=== PATIENT | female | born 1975 | race African-American/Black ===

== ENCOUNTER → 2024-03-04 19:46 | Outpatient (REF) | payer OTHER, SELFPAY | LOC: WDC 19:46 | PROVIDERS: ATTENDING PHYSICIAN Nurse Practitioner Family | DX: Z12.31 Encounter for screening mammogram for malignant neoplasm of breast (principal) | CPT/HCPCS: 77063; 77067 ==

== ENCOUNTER → 2024-03-14 09:35 | Outpatient (REF) | payer OTHER, SELFPAY | LOC: WDC 09:35 | PROVIDERS: ATTENDING PHYSICIAN Nurse Practitioner Family | DX: R92.8 Other abnormal and inconclusive findings on diagnostic imaging of breast (principal) | CPT/HCPCS: 76642 ==

== ENCOUNTER → 2024-08-06 09:14 | Outpatient (REF) | payer OTHER, SELFPAY | LOC: WDC 09:14 | PROVIDERS: ATTENDING PHYSICIAN Nurse Practitioner Family | DX: R92.8 Other abnormal and inconclusive findings on diagnostic imaging of breast (principal) | CPT/HCPCS: 76642 ==

== ENCOUNTER → 2024-10-17 13:50 | Outpatient (REF) | payer OTHER, SELFPAY | LOC: RCS 13:50 | PROVIDERS: ATTENDING PHYSICIAN Internal Medicine Cardiovascular Disease; FAMILY PHYSICIAN Nurse Practitioner Family | DX: I25.42 Coronary artery dissection (principal) | CPT/HCPCS: 93306 ==

== ENCOUNTER → 2025-03-05 14:35 | Outpatient (REF) | payer OTHER, SELFPAY | LOC: WDC 14:35 | PROVIDERS: ATTENDING PHYSICIAN Nurse Practitioner Family | DX: Z12.31 Encounter for screening mammogram for malignant neoplasm of breast (principal); R92.8 Other abnormal and inconclusive findings on diagnostic imaging of breast | CPT/HCPCS: 76642; 77063; 77067 ==